=== PATIENT | female | born 1955 | race Caucasian/White ===

== ENCOUNTER → 2016-12-14 | Outpatient (CLI) | payer BC ==
--- NOTE | ~2016-12-14 | MY11 ---
[facility] A Service of [facility] & [facility] / [facility] RADIOLOGY TEXT RESULTS PATIENT: ASTER CATALAN LOCATION: [facility] : 53 UNIT #: [id number] AGE: [address]: Nasir Briones MD SEX: F ORDER DR: [id number] [facility] [address] [place], [place] [address] [id number] O MR#: [id number] Acc #: [id number] NAME: ASTER CATALAN : 1955 SEX: F STUDY DATE/TIME: 12/14/2016 9:41 UNIT: [facility] ROOM: STUDY DESCRIPTION: MY Mammogram Screening Dig Sam Attending Physician: Nasir Briones M.D. Referring Physician: Nasir Briones M.D. Ordering Physician: Nasir Briones M.D. Primary Care Physician: Mariela Schwartz M.D. MEDICAL IMAGING REPORT This report is preliminary unless electronic signature is present EXAM Digital screening mammogram, 12/14/2016 HISTORY 61-year-old woman no risk elevation. Annual screening. COMPARISON Mammograms date to 06/26/2006 with most recent 12/14/2015. FINDINGS Digital imaging of each breast was completed utilizing a two-view examination of each breast in craniocaudal and mediolateral-oblique projections. Review and interpretation of digital mammograms include a second review in conjunction with FDA-approved CAD device. There is a normal parenchymal presentation bilaterally consistent with the patient's age. There are no breast masses imaged and no parenchymal asymmetry is visualized. There are no suspicious microcalcifications and I see no focal architectural disturbance. IMPRESSION Negative screening digital mammogram. One-year followup recommended. Patients over the age of 40 are entered into a reminder system with target due date for the next mammogram. A result letter will also be sent to the patient. BIRADS: 1 Negative Dictated by... Barry Wiseman M.D. THIS IS AN ELECTRONICALLY VERIFIED REPORT Barry Wiseman M.D. at 12/14/2016 11:27 AM [facility] A Service of [facility] & [facility] / [facility] RADIOLOGY TEXT RESULTS PATIENT: ASTER CATALAN LOCATION: [facility] : 53 UNIT #: [id number] AGE: [address]: Nasir Briones MD SEX: F ORDER DR: Jeanie TD: 12/14/2016 11:05 JOB #: [id number] MEDICAL IMAGING REPORT Page 1 of 1 COPY
--- NOTE | ~2016-12-14 | BD1 ---
[facility] A Service of [facility] & [facility] / [facility] RADIOLOGY TEXT RESULTS PATIENT: ASTER CATALAN LOCATION: [facility] : 53 UNIT #: [id number] AGE: [address]: Nasir Briones MD SEX: F ORDER DR: [id number] [facility] [address] [place], [place] [address] [id number] O MR#: [id number] Acc #: [id number] NAME: ASTER CATALAN : 1955 SEX: F STUDY DATE/TIME: 12/14/2016 10:10 UNIT: [facility] ROOM: STUDY DESCRIPTION: BD Dexa Bone Dens 1+ Site Attending Physician: Nasir Briones M.D. Referring Physician: Nasir Briones M.D. Ordering Physician: Nasir Briones M.D. Primary Care Physician: Mariela Schwartz M.D. MEDICAL IMAGING REPORT This report is preliminary unless electronic signature is present EXAM Bone density spine/hip 12/14/2016 HISTORY Osteo. On levothyroxine. Nonsmoker. On blood pressure medication. Vitamin D supplement. Postmenopausal. FINDINGS Bone density scanning performed upper 4 lumbar vertebral segments and proximal left femur. Patient is 276 pound 61-year-old female. Comparison 10/25/2013. L1-L4: Bone low density 0.997 g/cm2 for a T-score 0.5 standard deviation below mean for a reference population normal young individuals and Z-score 1.1 standard deviation above mean for age-match population. Compared to 10/25/2013 there has been a 6.2% decrease in bone mineral density in this region. PROXIMAL LEFT FEMUR: Total bone mineral density 1.042 g/cm2 for a T-score 0.8 standard deviation below mean for a reference population normal young individual and Z-score 1.9 standard deviation above mean for age-matched population. Left femoral neck bone mineral density 0.735 g/cm2 for T-score 1.0 standard deviation below mean for a reference population normal young individuals and Z-score 0.4 standard deviation above the mean for age-matched population. Using total bone mineral density in this region as a trending value there has been a 6.7% decrease in proximal left femoral bone mineral density compared to 10/25/2013. IMPRESSION Normal bone mineral density in the upper 4 lumbar vertebral segments overall and the proximal left femur. Statistically significant decreases in bone mineral density in both of these regions compared to 10/25/2013. [facility] Service of [facility] RADIOLOGY TEXT RESULTS PATIENT: ASTER CATALAN LOCATION: [facility] : 53 UNIT #: [id number] AGE: [address]: Nasir Briones MD SEX: F ORDER DR: Please correlate with the patient's clinical status. Continued surveillance recommended. Dictated by... Elroy Salinas M.D. THIS IS AN ELECTRONICALLY VERIFIED REPORT Elroy Salinas M.D. at 12/16/2016 5:58 PM ISAAC/umu TD: 12/15/2016 09:56 JOB #: [id number] MEDICAL IMAGING REPORT Page 1 of 1 COPY
== END | disposition home or self-care (01) ==
LOC: CWCC 09:23
DX: Z12.31 Encounter for screening mammogram for malignant neoplasm of breast (principal); Z13.820 Encounter for screening for osteoporosis; M85.80 Other specified disorders of bone density and structure, unspecified site
CPT/HCPCS: 77080; G0202